=== PATIENT | male | born 1960 | race Caucasian/White ===

== ENCOUNTER 2016-12-01 08:51 | Emergency (ER) | payer MEDICARE ==
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
[~2016-12-01 08:51] MED LIST: FLEXERIL10 M1 PO; MEDROL PO; MOBIC; NO MEDICATIONS; ORUDIS75 M1 PO; ROBAXIN; TORADOL10 MG PO; VICODIN 5/500 T1 TAB; VICODIN PO
== END 2016-12-01 09:15 | disposition left against medical advice (07) ==
LOC: CED 08:51
DX: S09.90XA Unspecified injury of head, initial encounter (principal); F41.9 Anxiety disorder, unspecified; F17.200 Nicotine dependence, unspecified, uncomplicated; Y04.0XXA Assault by unarmed brawl or fight, initial encounter; Y92.009 Unspecified place in unspecified non-institutional (private) residence as the place of occurrence of the external cause
CPT/HCPCS: 99283

== ENCOUNTER 2016-12-17 04:35 | Emergency (ER) | payer MEDICARE ==
--- NOTE | ~2016-12-17 | CR63 ---
[facility] A Service of [facility] RADIOLOGY TEXT RESULTS PATIENT: MARJAN BARRERA LOCATION: [facility] : 60 UNIT #: [id number] AGE: [address]: Jassi Ramirez MD SEX: M ORDER DR: [id number] [facility]. [place], [place] [address] [id number] E MR#: [id number] Acc #: [id number] NAME: MARJAN BARRERA : 1960 SEX: M STUDY DATE/TIME: 12/17/2016 5:28 UNIT: [facility] ROOM: STUDY DESCRIPTION: CR Chest 2 View Attending Physician: Eldon Ramirez M.D. Ordering Physician: Eldon Ramirez M.D. Primary Care Physician: No Primary Care Physician MEDICAL IMAGING REPORT This report is preliminary unless electronic signature is present EXAM PA and lateral chest DATE 12/17/2016 HISTORY 56-year-old male with generalized back pain and chest pain, chronic for years. No known injury. COMPARISON AP portable chest. 09/30/2012. FINDINGS PA and lateral examination of the chest upright shows a good expansion of the parenchyma with a normal distribution of the pulmonary vascularity. There is no indication of congestion, effusion, infiltrate, tumor, or nodular density. The pleural reflections and diaphragmatic contours are normal. The cardiac silhouette and mediastinal anatomy is within normal limits. IMPRESSION Normal chest. Dictated by... Akua Link M.D. THIS IS AN ELECTRONICALLY VERIFIED REPORT Akua Link M.D. at 12/18/2016 1:51 AM [facility]/sandra [facility] A Service [facility] RADIOLOGY TEXT RESULTS PATIENT: MARJAN BARRERA LOCATION: [facility] : 60 UNIT #: [id number] AGE: [address]: Jassi Ramirez MD SEX: M ORDER DR: TD: 12/17/2016 11:56 JOB #: [id number] MEDICAL IMAGING REPORT COPY
--- NOTE | ~2016-12-17 | CR126 ---
[facility] A Service of [facility] & [facility] RADIOLOGY TEXT RESULTS PATIENT: MARJAN BARRERA LOCATION: [facility] : 60 UNIT #: [id number] AGE: [address]: Jassi Ramirez MD SEX: M ORDER DR: [id number] [facility] [address] [place], [place] [address] [id number] E MR#: [id number] Acc #: [id number] NAME: MARJAN BARRERA : 1960 SEX: M STUDY DATE/TIME: 12/17/2016 5:25 UNIT: [facility] ROOM: STUDY DESCRIPTION: CR Foot Complete Min 3 View Lt Attending Physician: Eldon Ramirez M.D. Ordering Physician: Eldon Ramirez M.D. Primary Care Physician: Primary Care Physician No MEDICAL IMAGING REPORT This report is preliminary unless electronic signature is present EXAM 3 views left foot, 12/17/2016 HISTORY Bilateral foot pain, chronic for years. No known injury. COMPARISON None FINDINGS The tarsal, metatarsal, and phalangeal elements are all anatomically normal in position and alignment. There are no articular defects. No fractures or radiopaque foreign bodies in the soft tissues are apparent. IMPRESSION Normal left foot. Dictated by... Akua Link M.D. THIS IS AN ELECTRONICALLY VERIFIED REPORT Akua Link M.D. at 12/18/2016 1:51 AM NIGHAT/tyler TD: 12/17/2016 11:53 JOB #: [id number] MEDICAL IMAGING REPORT COPY
--- NOTE | ~2016-12-17 | CR127 ---
[facility] A Service of [facility] & [facility] RADIOLOGY TEXT RESULTS PATIENT: MARJAN BARRERA LOCATION: [facility] : 60 UNIT #: [id number] AGE: [address]: Jassi Ramirez MD SEX: M ORDER DR: [id number] [facility] [address] [place] [address]. [place], [place] [address] [id number] E MR#: [id number] Acc #: [id number] NAME: MARJAN BARRERA : 1960 SEX: M STUDY DATE/TIME: 12/17/2016 5:24 UNIT: [facility] ROOM: STUDY DESCRIPTION: CR Foot Complete Min 3 View Rt Attending Physician: Jassi Ramirez Ordering Physician: Jassi Ramirez, [id number] Primary Care Physician: Primary Care Physician No MEDICAL IMAGING REPORT This report is preliminary unless electronic signature is present EXAM 3 views right foot DATE 12/17/2016 HISTORY Generalized bilateral foot pain for years, chronic. No known injury. COMPARISON None FINDINGS The tarsal, metatarsal, and phalangeal elements are all anatomically normal in position and alignment. There are no articular defects. No fractures or radiopaque foreign bodies in the soft tissues are apparent. IMPRESSION Normal foot. Dictated by... Akua Link M.D. THIS IS AN ELECTRONICALLY VERIFIED REPORT Akua Link M.D. at 12/18/2016 1:51 AM [facility]/letty TD: 12/17/2016 12:19 JOB #: [id number] MEDICAL IMAGING REPORT COPY
--- NOTE | ~2016-12-17 | CR181 ---
[facility] A Service of [facility] & [facility] RADIOLOGY TEXT RESULTS PATIENT: MARJAN BARRERA LOCATION: [facility] : 60 UNIT #: [id number] AGE: [address]: Jassi Ramirez MD SEX: M ORDER DR: [id number] [facility] [address] [place], [place] [address] [id number] E MR#: [id number] Acc #: [id number] NAME: MARJAN BARRERA : 1960 SEX: M STUDY DATE/TIME: 12/17/2016 5:30 UNIT: [facility] ROOM: STUDY DESCRIPTION: CR Lumbar Spine 2 or 3 Views Attending Physician: Eldon Ramirez M.D. Ordering Physician: Eldon Ramirez M.D. Primary Care Physician: No Primary Care Physician MEDICAL IMAGING REPORT This report is preliminary unless electronic signature is present EXAM 3 views of the lumbar spine, 12/17/2016. HISTORY Generalized back pain for years, chronic. No documented injury. COMPARISON STUDIES Lumbar spine series, 11/12/2016. FINDINGS Diminished disc height is present at L3-L4 and L4-L5, and to a lesser degree at L5-S1. Mild facet arthropathy in the lower lumbar spine. No fracture. No subluxation. No osteolytic or osteoblastic abnormalities. IMPRESSION Diminished disc height at L3-L4, L4-L5, and L5-S1, similar to 11/12/2016. No acute lumbar spine findings. Dictated by... Akua Link M.D. THIS IS AN ELECTRONICALLY VERIFIED REPORT Akua Link M.D. at 12/18/2016 1:51 AM NIGHAT/pedro TD: 12/17/2016 11:58 JOB #: [id number] MEDICAL IMAGING REPORT COPY
== END 2016-12-17 07:05 | disposition home or self-care (01) ==
LOC: CED 04:35
DX: S39.012A Strain of muscle, fascia and tendon of lower back, initial encounter (principal); M25.572 Pain in left ankle and joints of left foot; M25.571 Pain in right ankle and joints of right foot; F31.9 Bipolar disorder, unspecified; F17.210 Nicotine dependence, cigarettes, uncomplicated; X58.XXXA Exposure to other specified factors, initial encounter; Y92.89 Other specified places as the place of occurrence of the external cause
CPT/HCPCS: 71020; 72100; 73630; 96372; 99284; J1885

== ENCOUNTER 2017-01-17 13:07 | Emergency (ER) | payer MEDICARE ==
--- NOTE | ~2017-01-17 | CR63 ---
[facility] A Service of [facility] & [facility] RADIOLOGY TEXT RESULTS PATIENT: MARJAN BARRERA LOCATION: [facility] : 60 UNIT #: [id number] AGE: [address]: Yolis Capellan APRN SEX: M ORDER DR: [id number] [facility] [address] [place], [place] [address] [id number] E MR#: [id number] Acc #: [id number] NAME: MARJAN BARRERA : 1960 SEX: M STUDY DATE/TIME: 01/17/2017 13:24 UNIT: [facility] ROOM: STUDY DESCRIPTION: CR Chest 2 View Attending Physician: Yolis Capellan A.P.R.N. Ordering Physician: Ed Mark Conde M.D. Primary Care Physician: No Primary Care Physician MEDICAL IMAGING REPORT This report is preliminary unless electronic signature is present EXAM PA and lateral chest 01/17/2017 at 1324. HISTORY Chest and rib pain today. 40-year smoking history. COMPARISON PA and lateral chest radiograph, 12/17/2016. FINDINGS No acute airspace disease. Heart size within normal limits. No pleural effusion or pneumothorax is identified. No acute osseous abnormalities. IMPRESSION No acute cardiopulmonary findings. Dictated by... Akua Link M.D. THIS IS AN ELECTRONICALLY VERIFIED REPORT Akua Link M.D. at 01/20/2017 8:37 AM SEDRICK/sandra TD: 01/17/2017 17:26 JOB #: [id number] MEDICAL IMAGING REPORT Page 1 of 1 COPY
== END 2017-01-17 14:40 | disposition home or self-care (01) ==
LOC: CFTX 13:07
DX: S20.211A Contusion of right front wall of thorax, initial encounter (principal); F17.210 Nicotine dependence, cigarettes, uncomplicated; Y04.0XXA Assault by unarmed brawl or fight, initial encounter; Y92.89 Other specified places as the place of occurrence of the external cause; M54.9 Dorsalgia, unspecified; G89.29 Other chronic pain; F41.9 Anxiety disorder, unspecified; F31.9 Bipolar disorder, unspecified
CPT/HCPCS: 71020; 82947; 99283

== ENCOUNTER 2017-02-06 07:06 | Emergency (ER) | payer MEDICARE ==
--- NOTE | ~2017-02-06 | CR210 ---
[facility] A Service of [facility] RADIOLOGY TEXT RESULTS PATIENT: MARJAN BARRERA LOCATION: [facility] : 60 UNIT #: [id number] AGE: [address]: Jer Maya MD SEX: M ORDER DR: [id number] [facility] [address] [place], [place] [address] [id number] E MR#: [id number] Acc #: [id number] NAME: MARJAN BARRERA : 1960 SEX: M STUDY DATE/TIME: 02/06/2017 6:56 UNIT: [facility] ROOM: STUDY DESCRIPTION: CR Ribs Uni 2 View W PA Ch Lt Attending Physician: Jer Maya M.D. Ordering Physician: Jer Maya M.D. Primary Care Physician: Primary Care Physician No MEDICAL IMAGING REPORT This report is preliminary unless electronic signature is present EXAM Chest with left rib series, 02/06/2017 COMPARISON Chest radiograph, 01/17/2017 HISTORY No known injury. Left-side chest and rib pain for 10 days. FINDINGS Chest radiograph shows no acute disease. Left rib series is normal. IMPRESSION Negative chest and left rib series. Dictated by... Willian Santizo M.D. THIS IS AN ELECTRONICALLY VERIFIED REPORT Willian Santizo M.D. at 02/10/2017 10:37 AM CARLYLE/tyler TD: 02/06/2017 08:02 JOB #: [id number] MEDICAL IMAGING REPORT Page 1 of 1 COPY
== END 2017-02-06 07:48 | disposition home or self-care (01) ==
LOC: CED 07:06
DX: S20.212A Contusion of left front wall of thorax, initial encounter (principal); E16.2 Hypoglycemia, unspecified; F31.9 Bipolar disorder, unspecified; F41.9 Anxiety disorder, unspecified; F17.200 Nicotine dependence, unspecified, uncomplicated; X58.XXXA Exposure to other specified factors, initial encounter; Y92.9 Unspecified place or not applicable
CPT/HCPCS: 71101; 82947; 99283

== ENCOUNTER 2017-02-25 00:18 | Emergency (ER) | payer MEDICARE | END 2017-02-26 02:07 | disposition home or self-care (01) | LOC: CED 00:18 | DX: S91.342A Puncture wound with foreign body, left foot, initial encounter (principal); W25.XXXA Contact with sharp glass, initial encounter; W45.8XXA Other foreign body or object entering through skin, initial encounter; Y93.02 Activity, running; Y92.009 Unspecified place in unspecified non-institutional (private) residence as the place of occurrence of the external cause; F17.210 Nicotine dependence, cigarettes, uncomplicated; F41.9 Anxiety disorder, unspecified; F31.9 Bipolar disorder, unspecified | CPT/HCPCS: 99283 ==

== ENCOUNTER 2017-03-21 12:09 | Emergency (ER) | payer MEDICARE | END 2017-03-21 15:30 | disposition left against medical advice (07) | LOC: CED 12:09 | DX: Z53.21 Procedure and treatment not carried out due to patient leaving prior to being seen by health care provider (principal) ==

== ENCOUNTER 2017-03-27 03:42 | Emergency (ER) | payer MEDICARE ==
--- NOTE | ~2017-03-27 | CR127 ---
[facility] A Service of [facility] & [facility] RADIOLOGY TEXT RESULTS PATIENT: MARJAN BARRERA LOCATION: [facility] : 60 UNIT #: [id number] AGE: [address]: HERNAN OSPINA APRN SEX: M ORDER DR: [id number] [facility] [address] [place], [place] [address] [id number] E MR#: [id number] Acc #: [id number] NAME: MARJAN BARRERA : 1960 SEX: M STUDY DATE/TIME: 03/27/2017 5:56 UNIT: [facility] ROOM: STUDY DESCRIPTION: CR Foot Complete Min 3 View Rt Attending Physician: Hernan Ospina Aprn Ordering Physician: Hernan Ospina Aprn Primary Care Physician: No Primary Care Physician MEDICAL IMAGING REPORT This report is preliminary unless electronic signature is present EXAM Right foot, 3 views, 03/27/2017. HISTORY Right foot pain for 3 days with no known injury, diabetic foot. FINDINGS The tarsal, metatarsal, and phalangeal elements are all anatomically normal in position and alignment. There are no articular defects. No fractures or radiopaque foreign bodies in the soft tissues are apparent. IMPRESSION Normal foot. Dictated by... Sunny Dorsey M.D. THIS IS AN ELECTRONICALLY VERIFIED REPORT Sunny Dorsey M.D. at 03/28/2017 8:26 AM [facility]/belle TD: 03/27/2017 07:35 JOB #: [id number] MEDICAL IMAGING REPORT Page 1 of 1 COPY
--- NOTE | ~2017-03-27 | CR126 ---
[facility] A Service of [facility] & [facility] RADIOLOGY TEXT RESULTS PATIENT: MARJAN BARRERA LOCATION: [facility] : 60 UNIT #: [id number] AGE: [address]: HERNAN OSPINA APRN SEX: M ORDER DR: [id number] [facility] [address] [place], [place] [address] [id number] E MR#: [id number] Acc #: [id number] NAME: MARJAN BARRERA : 1960 SEX: M STUDY DATE/TIME: 03/27/2017 5:58 UNIT: [facility] ROOM: STUDY DESCRIPTION: CR Foot Complete Min 3 View Lt Attending Physician: Hernan Ospina Aprn Ordering Physician: Hernan Ospina Aprn Primary Care Physician: No Primary Care Physician MEDICAL IMAGING REPORT This report is preliminary unless electronic signature is present EXAM Left foot, 3 views, 03/27/2017 HISTORY Left foot pain, generalized, for 3 days, diabetic foot. No known injury. FINDINGS The tarsal, metatarsal, and phalangeal elements are all anatomically normal in position and alignment. There are no articular defects. No fractures or radiopaque foreign bodies in the soft tissues are apparent. IMPRESSION Normal foot. Dictated by... Sunny Dorsey M.D. THIS IS AN ELECTRONICALLY VERIFIED REPORT Sunny Dorsey M.D. at 03/28/2017 8:26 AM LEORA/belle TD: 03/27/2017 07:37 JOB #: [id number] MEDICAL IMAGING REPORT Page 1 of 1 COPY
--- NOTE | ~2017-03-27 | CR173 ---
[facility] A Service of [facility] & [facility] RADIOLOGY TEXT RESULTS PATIENT: MARJAN BARRERA LOCATION: [facility] : 60 UNIT #: [id number] AGE: [address]: HERNAN OSPINA APRN SEX: M ORDER DR: [id number] [facility] [address] [place], [place] [address] [id number] E MR#: [id number] Acc #: [id number] NAME: MARJAN BARRERA : 1960 SEX: M STUDY DATE/TIME: 03/27/2017 5:54 UNIT: [facility] ROOM: STUDY DESCRIPTION: CR Knee 3 Views Rt Attending Physician: Hernan Ospina Aprn Ordering Physician: Hernan Ospina Aprn Primary Care Physician: No Primary Care Physician MEDICAL IMAGING REPORT This report is preliminary unless electronic signature is present EXAM Right knee, 3 views, 03/27/2017. HISTORY Generalized right knee pain for 3 days with no known injury. FINDINGS Three views of the right knee demonstrate no fracture. A surgical screw is in place along the lateral aspect of the distal femoral diaphysis. There is degenerative change with narrowing of the medial and lateral compartments of the knee and the patellofemoral joint. Small osteophytes extend off the tibial plateau and the posterior patella. IMPRESSION Degenerative and postsurgical changes involving the right knee. No acute abnormality. Dictated by... Sunny Dorsey M.D. THIS IS AN ELECTRONICALLY VERIFIED REPORT Sunny Dorsey M.D. at 03/28/2017 8:26 AM LEOR[facility]/belle TD: 03/27/2017 07:33 JOB #: [id number] MEDICAL IMAGING REPORT Page 1 of 1 COPY
== END 2017-03-27 07:59 | disposition home or self-care (01) ==
LOC: CED 03:42
DX: S80.01XA Contusion of right knee, initial encounter (principal); S90.32XA Contusion of left foot, initial encounter; S90.31XA Contusion of right foot, initial encounter; F31.9 Bipolar disorder, unspecified; F17.210 Nicotine dependence, cigarettes, uncomplicated; W03.XXXA Other fall on same level due to collision with another person, initial encounter; Y92.410 Unspecified street and highway as the place of occurrence of the external cause
CPT/HCPCS: 73562; 73630; 99283

== ENCOUNTER 2017-04-20 16:48 | Emergency (ER) | payer MEDICARE ==
[~2017-04-20] VITALS: Ht 182.9 cm; Wt 77.1 kg
== END 2017-04-20 20:00 | disposition home or self-care (01) ==
LOC: CED 16:48 → CFTX 16:48
DX: S01.01XA Laceration without foreign body of scalp, initial encounter (principal); I10 Essential (primary) hypertension; F31.9 Bipolar disorder, unspecified; R56.9 Unspecified convulsions; F17.210 Nicotine dependence, cigarettes, uncomplicated; W26.0XXA Contact with knife, initial encounter
CPT/HCPCS: 12002; 99283

== ENCOUNTER 2017-04-26 01:56 | Emergency (ER) | payer MEDICARE ==
[~2017-04-26] VITALS: Ht 182.9 cm; Wt 74.8 kg
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
== END 2017-04-26 04:13 | disposition home or self-care (01) ==
LOC: CED 01:56
DX: S70.01XA Contusion of right hip, initial encounter (principal); S60.212A Contusion of left wrist, initial encounter; I10 Essential (primary) hypertension; Z76.5 Malingerer [conscious simulation]; V19.40XA Pedal cycle driver injured in collision with unspecified motor vehicles in traffic accident, initial encounter
CPT/HCPCS: 73110; 73502; 99283

== ENCOUNTER 2017-05-05 04:39 | Emergency (ER) | payer MEDICARE ==
[~2017-05-05] VITALS: Ht 182.9 cm; Wt 79.4 kg
== END 2017-05-05 06:00 | disposition home or self-care (01) ==
LOC: CED 04:39
DX: R51 Headache (principal); R21 Rash and other nonspecific skin eruption; F31.9 Bipolar disorder, unspecified; F17.200 Nicotine dependence, unspecified, uncomplicated; Z98.890 Other specified postprocedural states
CPT/HCPCS: 99284

== ENCOUNTER 2017-05-22 02:53 | Emergency (ER) | payer MEDICARE ==
[~2017-05-22] VITALS: Ht 182.9 cm; Wt 72.6 kg
--- NOTE | ~2017-05-22 | EKG ---
PATIENT: MARJAN BARRERA UNIT #: [id number] Ventricular Rate: 75 BPM Atrial Rate: 75 BPM P-R Interval: 170 ms QRS Duration: 94 ms Q-T Interval: 388 ms QTC Calculation(Bezet): 433 ms P Dupont: 71 degrees Calculated R Dupont: 59 degrees Calculated T Dupont: 58 degrees Diagnosis Line: Normal sinus rhythm Diagnosis Line: Normal ECG Diagnosis Line: When compared with ECG of 28-AUG-2012 09:28, Diagnosis Line: No significant change was found Diagnosis Line: Confirmed by TRENA VILLARREAL MD ([id number]) on 05/22/2017 Diagnosis Line: 6:50:53 PM INTERPRETING MD: PHIL BARNHART
--- NOTE | ~2017-05-22 | CR72 ---
[facility] A Service of [facility] & [facility] RADIOLOGY TEXT RESULTS PATIENT: MARJAN BARRERA LOCATION: [facility] : 60 UNIT #: [id number] AGE: [address]: Jer Maya MD SEX: M ORDER DR: [id number] [facility] [address] [place], [place] [address] [id number] E MR#: [id number] Acc #: [id number] NAME: MARJAN BARRERA : 1960 SEX: M STUDY DATE/TIME: 05/22/2017 04:51 UNIT: [facility] ROOM: STUDY DESCRIPTION: CR Chest Single View Portable Attending Physician: Jer Maya M.D. Ordering Physician: Jer Maya M.D. Primary Care Physician: Primary Care Physician No MEDICAL IMAGING REPORT This report is preliminary unless electronic signature is present EXAM Portable chest 05/22 at 04:51 INDICATION Shortness of air and chest pain for 1-2 days. COMPARISON 01/17/2017. FINDINGS A single AP portable view of the chest shows both lungs to be clear. The heart is normal in size. The mediastinal contour is normal. No significant bone abnormalities are seen. IMPRESSION Normal portable chest. Dictated by... Nas Krueger Jr., M.D. THIS IS AN ELECTRONICALLY VERIFIED REPORT Nas Krueger Jr., M.D. at 05/23/2017 12:52 AM FREDO/danielle TD: 05/22/2017 10:06 JOB #: [id number] MEDICAL IMAGING REPORT Page 1 of 1 COPY
[2017-05-22 05:17] LABS: BASOPHIL# 0.1 X10e3 (0-0.3); BASOPHIL% 0.8 % (0-2.5); EOSINOPHIL# 0.3 X10e3 (0-0.7); EOSINOPHIL% 2.4 % (0.0-7.0); HEMATOCRIT 39.7 % (38.0-50.0); LYMPHOCYTE# 2.9 X10e3 (1.0-3.5); MEAN CELL VOLUME 93.1 FL (83-96); MEAN CORPUSCULAR HEMOGLOBIN 30.6 PG (28-34); MEAN CORPUSCULAR HGB CONC 32.9 g/dL (30-36); MONOCYTE# 0.9 X10e3 (0-1.0); NEUTROPHIL% 67.8 % (40-75); PLATELET COUNT 299 X10e3 (140-420); RED BLOOD COUNT 4.26 X10e (3.90-5.60); RED CELL DISTRIBUTION WIDTH 13.3 % (11.0-15.5); WHITE BLOOD COUNT 13.3 X10e3 (4.0-10.5)
[2017-05-22 05:19] LABS: DIFF IND NO
[2017-05-22 05:27] LABS: POC - CKMB 2.2 ng/mL (0.0-7.9); POC - TROPONIN <0.05 ng/mL (<=0.05)
[2017-05-22 05:50] LABS: BUN/CREATININE RATIO 17.5; CREATININE SERUM 0.8 mg/dL (0.6-1.4); GLOM FILT RATE Estimated 99.9 mL/min (>60); POTASSIUM 3.7 mmol/L (3.5-5.1)
== END 2017-05-22 05:56 | disposition home or self-care (01) ==
LOC: CED 02:53
PROVIDERS: Emergency Medicine
DX: H60.91 Unspecified otitis externa, right ear (principal); R04.2 Hemoptysis; F17.200 Nicotine dependence, unspecified, uncomplicated
CPT/HCPCS: 36415; 71010; 80048; 82553; 84484; 85025; 85379; 93005; 96361; 96374; 99284; J1885

== ENCOUNTER 2017-06-14 06:59 | Emergency (ER) | payer MEDICARE ==
[~2017-06-14] VITALS: Ht 182.9 cm; Wt 72.6 kg
--- NOTE | ~2017-06-14 | CT71 ---
[facility] A Service of [facility] RADIOLOGY TEXT RESULTS PATIENT: MARJAN BARRERA LOCATION: [facility] : 60 UNIT #: [id number] AGE: [address]: Paramjit Gaona DO SEX: M ORDER DR: [id number] [facility] [address] [place], [place] [address] [id number] E MR#: [id number] Acc #: [id number] NAME: MARJAN BARRERA : 1960 SEX: M STUDY DATE/TIME: 06/14/2017 8:34 UNIT: [facility] ROOM: STUDY DESCRIPTION: CT Head Wo Contrast Attending Physician: Paramjit Gaona D.O. Ordering Physician: Paramjit Gaona D.O. Primary Care Physician: Primary Care Physician No MEDICAL IMAGING REPORT This report is preliminary unless electronic signature is present EXAM CT of the head without contrast INDICATION Diffuse headache for 1 month. Patient reports right upper tooth pain. He has got a broken tooth on the right. TECHNIQUE Axial CT images were obtained through the vertex of the skull through the skull base no intravenous contrast material was administered. This CT exam was performed with one or more of the following radiation dose reduction techniques: automatic control, adjustment of mA and/or kV according to patient size, and iterative reconstruction. FINDINGS No acute intracranial hemorrhage is identified. Brain parenchyma is normal in attenuation, with no focal areas of decreased attenuation seen. There is no midline shift or mass effect. Patient does have a mucous retention cyst within the left maxillary sinus and some additional mucosal thickening is seen within the ethmoid sinuses. Similar findings were present in May of 2017. Mastoid air cells appear clear. No aggressive osseous abnormalities are seen. No focal soft tissue abnormalities are identified. IMPRESSION 1. No acute intracranial process is identified. Specifically there is no evidence of acute hemorrhage mass lesion or acute infarct. 2. Sinus inflammatory changes Dictated by... Armida Barraza M.D. [facility] A Service [facility] RADIOLOGY TEXT RESULTS PATIENT: MARJAN BARRERA LOCATION: [facility] : 60 UNIT #: [id number] AGE: [address]: Paramjit Gaona DO SEX: M ORDER DR: THIS IS AN ELECTRONICALLY VERIFIED REPORT Armida Barraza M.D. at 06/15/2017 12:54 PM AFF/diana TD: 06/15/2017 02:04 JOB #: [id number] MEDICAL IMAGING REPORT Page 1 of 1 COPY
--- NOTE | ~2017-06-14 | CR229 ---
[facility] A Service of [facility] & [facility] RADIOLOGY TEXT RESULTS PATIENT: MARJAN BARRERA LOCATION: [facility] : 60 UNIT #: [id number] AGE: [address]: Paramjit Gaona DO SEX: M ORDER DR: [id number] [facility] [address] [place], [place] [address] [id number] E MR#: [id number] Acc #: [id number] NAME: MARJAN BARRERA : 1960 SEX: M STUDY DATE/TIME: 06/14/2017 8:00 UNIT: [facility] ROOM: STUDY DESCRIPTION: CR Shoulder Min 2 View Lt Attending Physician: Paramjit Gaona D.O. Ordering Physician: Paramjit Gaona D.O. Primary Care Physician: No Primary Care Physician MEDICAL IMAGING REPORT This report is preliminary unless electronic signature is present EXAM Two views of the left shoulder. INDICATIONS Bilateral shoulder pain starting 5 years ago. No known injury. FINDINGS No acute fracture or subluxation of the left shoulder is identified. The patient does have degenerative changes involving the left shoulder, as well as the left AC joint. No focal soft tissue abnormalities are seen. IMPRESSION No acute findings. Dictated by... Armida Barraza M.D. THIS IS AN ELECTRONICALLY VERIFIED REPORT Armida Barraza M.D. at 06/15/2017 12:54 PM AFF/jt TD: 06/15/2017 01:54 JOB #: [id number] MEDICAL IMAGING REPORT Page 1 of 1 COPY
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
[2017-06-14 08:19] LABS: BASOPHIL# 0.1 X10e3 (0-0.3); BASOPHIL% 1.1 % (0-2.5); EOSINOPHIL# 0.4 X10e3 (0-0.7); EOSINOPHIL% 2.7 % (0.0-7.0); HEMATOCRIT 42.4 % (38.0-50.0); HEMOGLOBIN 14.3 gm/dL (13.0-16.0); LYMPHOCYTE# 2.8 X10e3 (1.0-3.5); LYMPHOCYTE% 21.5 % (17.0-45.0); MEAN CELL VOLUME 91.9 FL (83-96); MEAN CORPUSCULAR HEMOGLOBIN 31.1 PG (28-34); MEAN CORPUSCULAR HGB CONC 33.8 g/dL (30-36); MEAN PLATELET VOLUME 8.3 FL (6.5-11.5); MONOCYTE# 0.8 X10e3 (0-1.0); NEUTROPHIL# 8.9 X10e3 (1.5-7.1); NEUTROPHIL% 68.7 % (40-75); PLATELET COUNT 289 X10e3 (140-420); RED BLOOD COUNT 4.61 X10e (3.90-5.60); RED CELL DISTRIBUTION WIDTH 12.8 % (11.0-15.5)
[2017-06-14 08:20] LABS: AMPHETAMINE NEG (NEG); BARBITURATES NEG (NEG); BENZODIAZEPINES NEG (NEG); COCAINE NEG (NEG); MARIJUANA POS (NEG); OPIATES NEG (NEG); TRICYCLIC ANTIDEPRESSANTS NEG (NEG); U METHADONE NEG (NEG)
[2017-06-14 08:24] LABS: DIFF IND NO
[2017-06-14 08:41] LABS: CALCIUM SERUM 9.1 mg/dL (8.4-10.2); CREATININE SERUM 0.9 mg/dL (0.6-1.4); GLOM FILT RATE Estimated 95.1 mL/min (>60); POTASSIUM 4.2 mmol/L (3.5-5.1)
== END 2017-06-14 09:53 | disposition home or self-care (01) ==
LOC: CED 06:59
PROVIDERS: Emergency Medicine
DX: K08.89 Other specified disorders of teeth and supporting structures (principal); H66.91 Otitis media, unspecified, right ear; M25.511 Pain in right shoulder; M25.512 Pain in left shoulder; F17.200 Nicotine dependence, unspecified, uncomplicated
CPT/HCPCS: 36415; 70450; 73030; 80048; 80307; 85025; 96365; 96375; 99284; J0696; J1200; J2765